=== PATIENT | male | born 1995 | race Caucasian/White ===

== ENCOUNTER 2017-01-13 19:30 | Emergency (ER) | payer OTHER ==
--- NOTE | 2017-01-13 19:45 | PDOC ---
History of Present Illness - General History Source: Patient Exam Limitations: No Limitations - History of Present Illness Initial Comments: 01/13/17 20:16 The patient is a 21 year old male with a significant past medical history of ICD (Brugada syndrome) , chronic sinus problems, who presents to the ED with throat pain for 3 days. Patient states his throat pain is worse when moving his head around. 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 Patient states the throat pain has increased since . He contacted his brother today who is a physician, who told him to come in to the ED. He states he is unable to swallow or eat any food today. He states he had tylenol earlier today with little to no alleviation. He denies ear pain. He denies fever, chills, nausea, vomiting, diarrhea. Last tested for HIV in December, which was negative. PCP: Dr. Solorzano [facility] <Gigi Dorsey - Last Filed: 01/13/17 20:21> <Kacey Nixon - Last Filed: 01/14/17 04:51> - General Chief Complaint: Pain, Acute Stated Complaint: DIFFICULTY SWALLOWING X 3 DAYS Time Seen by Provider: 01/13/17 19:34 Past History <Gigi Dorsey - Last Filed: 01/13/17 20:21> - Surgical History Cardiac Surgery: Yes (ACID) - Immunization History Immunization Up to Date: Yes - Psycho/Social/Smoking Cessation Hx Anxiety: No Suicidal Ideation: No Smoking History: Never smoked Have you smoked in the past 12 months: No Information on smoking cessation initiated: No Hx Alcohol Use: No Drug/Substance Use Hx: No Substance Use Type: None <Kacey Nixon - Last Filed: 01/14/17 04:51> - Past Medical History Allergies/Adverse Reactions: Allergies Allergy/AdvReac Type Severity Reaction Status Date / Time blueberry Allergy Verified 01/13/17 19:32 ANTIHISTAMINES Allergy Uncoded 03/23/16 14:47 Home Medications: Ambulatory Orders Amoxicillin/Potassium Clav [Amox-Clav 875-125 mg Tablet] 1 each PO BID 01/13/17 Review of Systems - Review of Systems Able to Perform ROS?: Yes Comments:: 01/13/17 20:16 GENERAL/CONSTITUTIONAL: No fever or chills. No weakness. HEAD, EYES, EARS, NOSE AND THROAT: + throat pain. No change in vision. No ear pain or discharge. CARDIOVASCULAR: No chest pain or shortness of breath. RESPIRATORY: No cough, wheezing, or hemoptysis. GASTROINTESTINAL: No nausea, vomiting, diarrhea or constipation. GENITOURINARY: No dysuria, frequency, or change in urination. MUSCULOSKELETAL: No joint or muscle swelling or pain. No neck or back pain. SKIN: No rash NEUROLOGIC: No headache, vertigo, loss of consciousness, or change in strength/ sensation. ENDOCRINE: No increased thirst. No abnormal weight change. HEMATOLOGIC/LYMPHATIC: No anemia, easy bleeding, or history of blood clots. ALLERGIC/IMMUNOLOGIC: No hives or skin allergy. <Gigi Dorsey - Last Filed: 01/13/17 20:21> *Physical Exam - Vital Signs Last Vital Signs Temp Pulse Resp BP Pulse Ox 99 F 102 H 16 143/96 100 01/13/17 19:34 01/13/17 19:34 01/13/17 19:34 01/13/17 19:34 01/13/17 19:34 - Physical Exam Comments: 01/13/17 20:16 GENERAL: The patient is awake, alert, and fully oriented, in no acute distress. HEAD: Normal with no signs of trauma. EYES: Pupils equal, round and reactive to light, extraocular movements intact, sclera anicteric, conjunctiva clear with no pallor. ENT: Ears normal, nares patent. Oropharynx is erythematous without exudates or edema. Moist mucous membranes. NECK: Moderately enlarged and mildly tender lymphopathy of anterior cervical lymph nodes. Normal range of motion, supple without JVD, or masses. LUNGS: Breath sounds equal, clear to auscultation bilaterally. No wheeze/ crackles. HEART: Regular rate and rhythm, normal S1 and S2 without murmur or rub. ABDOMEN: Soft/nontender/nondistended. BS wnl. No guarding or rebound. No palpable masses. No hepatosplenomegaly. EXTREMITIES: Normal range of motion, no edema. No clubbing or cyanosis. No cords , erythema, or tenderness. NEUROLOGICAL: Cranial nerves II through XII grossly intact. Normal speech, normal gait. PSYCH: Normal mood, normal affect. SKIN: Warm, Dry, normal turgor, no rashes or lesions noted. <Gigi Dorsey - Last Filed: 01/13/17 20:21> - Vital Signs Last Vital Signs Temp Pulse Resp BP Pulse Ox 99 F 102 H 16 143/96 100 01/13/17 19:34 01/13/17 19:34 01/13/17 19:34 01/13/17 19:34 01/13/17 19:34 <Kacey Nixon - Last Filed: 01/14/17 04:51> ED Treatment Course - Medications Given in the ED: ED Medications Discontinued Medications Generic Name Dose Route Start Last Admin Trade Name Freq PRN Reason Stop Dose Admin Ibuprofen 600 mg 01/13/17 20:03 01/13/17 20:05 Motrin - PO 01/13/17 20:04 600 mg ONCE ONE Administration <Gigi Dorsey - Last Filed: 01/13/17 20:21> Medical Decision Making - Medical Decision Making Documentation has been prepared under my direction and personally reviewed by me in its entirety. I attest that this documented accurately reflects all work, treatment, procedures and medical decision making performed by me. As noted above, this 21-year-old man with Brugada syndrome/ICD presents with a few day history of sore throat/swollen glands in his neck. No fever/chills or other associated symptoms. Exam as noted. The patient has an erythematous oropharynx but no evidence of edema/abscesses present. Uvula small and midline. Also, lymphadenopathy is moderate in size, mildly tender in bilateral. There is no other abnormal lymph node enlargement noted on exam. The patient has had exposure to strep pharyngitis in the last several days. Patient given Motrin 600 mg by mouth for pain relief Quick strep/throat culture sent. Quick strep is negative. Throat culture is pending. Results discussed with the patient. He states that he has had marked relief in pain after Motrin 600 mg by mouth. Patient urged to continue to take nonsteroidal anti- inflammatories alternating with acetaminophen for pain. He will be contacted if throat culture is positive for strep. Meanwhile, he does not require antibiotic therapy. He should drink plenty of fluids and return to the emergency room if symptoms worsen. <Kacey Nixon - Last Filed: 01/14/17 04:51> *DC/Admit/Observation/Transfer - Attestations Scribe Attestion: 01/13/17 20:18 Documentation prepared by Gigi Dorsey, acting as medical records library professor for Kacey Nixon MD. <Gigi Dorsey - Last Filed: 01/13/17 20:21> <Kacey Nixon - Last Filed: 01/14/17 04:51> Diagnosis at time of Disposition: Acute pharyngitis Qualifiers: Pharyngitis/tonsillitis etiology: unspecified etiology Qualified Code(s): J02.9 - Acute pharyngitis, unspecified - Discharge Dispostion Disposition: HOME Condition at time of disposition: Stable - Referrals Referrals: Judson Solorzano MD [Primary Care Provider] - - Patient Instructions Printed Discharge Instructions: DI for Pharyngitis/Tonsillopharyngitis -- Adult Additional Instructions: rest;drink plenty of fluids motrin 600 mg every 6 hrs as needed for throat pain(take with food) return to ER if you have more severe pain,drooling, stiff neck or high fever followup with your general doctor within 4-5 days
[2017-01-13 19:50] VITALS: BP 143/96; PULSE 102; TEMP 99; BMI 24.7
[2017-01-13] MEDS ORDERED: IBUPROFEN 600 MG TABLET (FP) PO ONE ×3 (20:03→20:55)
== END 2017-01-13 21:08 | disposition home or self-care (01) ==
LOC: FER 19:30
DX: J02.9 Acute pharyngitis, unspecified (principal); Q24.8 Other specified congenital malformations of heart
CPT/HCPCS: 87070; 87430; 99281-25

== ENCOUNTER 2017-02-20 03:06 | Emergency (ER) | payer OTHER ==
[2017-02-20 03:34] VITALS: BP 113/73; PULSE 63; TEMP 98.2; BMI 23.6
[2017-02-20] MEDS ORDERED: PENICILLIN V POTASSIUM 500 MG TABLET PO ONE (03:52)
[2017-02-20] MEDS ORDERED: OXYCODONE/APAP 5/325MG COMBO TABLET PO ONE (03:52)
--- NOTE | 2017-02-20 03:54 | PDOC ---
History of Present Illness - General History Source: Patient, Old Records Exam Limitations: No Limitations - History of Present Illness Initial Comments: 02/20/17 03:58 The patient is a 21 year old male with a significant past medical history of ICD (Brugada syndrome) , chronic sinus problems, who presents to the emergency department with tooth pain for 3 hours. The patient states that his pain was untriggered and is worse when lying down. The patient states that he wants to see a dentist but is unable to until 9 am and was unable to tolerate pain in the meantime. <Adi Hendricks - Last Filed: 02/20/17 03:58> - General History Source: Patient <BrennankeithJimy - Last Filed: 02/20/17 04:15> - General Chief Complaint: Toothache Stated Complaint: TOOTHPAIN, JAW PAIN Time Seen by Provider: 02/20/17 03:52 Past History <Adi Hendricks - Last Filed: 02/20/17 03:58> - Past Medical History Cardiac Disorders: Yes (brugadas syndrome) - Surgical History Cardiac Surgery: Yes (ACID) - Immunization History Immunization Up to Date: Yes - Psycho/Social/Smoking Cessation Hx Anxiety: No Suicidal Ideation: No Smoking History: Never smoked Have you smoked in the past 12 months: No Hx Alcohol Use: No Drug/Substance Use Hx: No Substance Use Type: None <Jimy Mar - Last Filed: 02/20/17 04:15> - Past Medical History Allergies/Adverse Reactions: Allergies Allergy/AdvReac Type Severity Reaction Status Date / Time blueberry Allergy Verified 02/20/17 03:32 ANTIHISTAMINES Allergy Uncoded 02/20/17 03:32 Home Medications: Ambulatory Orders Oxycodone HCl/Acetaminophen [Percocet 5-325 mg Tablet] 1 - 2 tab PO Q6H #20 tablet MDD 4 02/20/17 Penicillin V Potassium [Pen Vee K -] 500 mg PO TID #30 tablet 02/20/17 Review of Systems - Review of Systems Able to Perform ROS?: Yes Comments:: 02/20/17 03:58 CONSTITUTIONAL: Absent: fever, no chills, no fatigue EYES: Absent: visual changes Mouth/ENT: Present: Tooth pain Absent: ear pain, no sore throat CARDIOVASCULAR: Absent: chest pain, no palpitations RESPIRATORY: Absent: cough, no SOB GI: Absent: abdominal pain, no nausea, no vomiting, no constipation, no diarrhea GENITOURINARY: Absent: dysuria, no frequency, no hematuria MUSCULOSKELETAL: Absent: back pain, no arthralgia, no myalgia SKIN: Absent: rash <Adi Hendricks - Last Filed: 02/20/17 03:58> *Physical Exam - Vital Signs Last Vital Signs Temp Pulse Resp BP Pulse Ox 98.2 F 63 18 113/73 100 02/20/17 03:32 02/20/17 03:32 02/20/17 03:32 02/20/17 03:32 02/20/17 03:32 - Physical Exam Comments: 02/20/17 03:58 GENERAL: Well-appearing, well-nourished. No apparent distress. HEENT: (+) Broken number 29 tooth. Normocephalic, atraumatic. PERRL, EOM intact. CARDIOVASCULAR: Normal S1, S2. Regular rate and rhythm. PULMONARY: Clear to auscultation bilaterally. ABDOMEN: Soft, non-distended, non-tender. EXTREMITIES: Normal ROM in all four extremities. No gross deformities. SKIN: Warm, dry. No rash NEUROLOGICAL: No focal neurological deficits. <Adi Hendricks - Last Filed: 02/20/17 03:58> - Vital Signs Last Vital Signs Temp Pulse Resp BP Pulse Ox 98.2 F 63 18 113/73 100 02/20/17 03:32 02/20/17 03:32 02/20/17 03:32 02/20/17 03:32 02/20/17 03:32 <Jimy Mar - Last Filed: 02/20/17 04:15> *DC/Admit/Observation/Transfer - Attestations Scribe Attestion: 02/20/17 03:59 Documentation prepared by Adi Hendricks, acting as medical records technician for Jimy Mar DO. <Adi Hendricks - Last Filed: 02/20/17 03:58> - Discharge Dispostion Admit: No <Jimy Mar - Last Filed: 02/20/17 04:15> Diagnosis at time of Disposition: Toothache, Fracture of tooth - Discharge Dispostion Disposition: HOME Condition at time of disposition: Stable - Prescriptions Prescriptions: Penicillin V Potassium [Pen Vee K -] 500 mg PO TID #30 tablet Oxycodone HCl/Acetaminophen [Percocet 5-325 mg Tablet] 1 - 2 tab PO Q6H #20 tablet MDD 4 - Referrals Referrals: Judson Solorzano MD [Primary Care Provider] - - Patient Instructions Printed Discharge Instructions: DI for Dental Pain
[2017-02-20] MEDS ORDERED: OXYCODONE/APAP 5/325MG COMBO TABLET ONE (03:55)
== END 2017-02-20 04:22 | disposition home or self-care (01) ==
LOC: JER 03:06
DX: K08.89 Other specified disorders of teeth and supporting structures (principal)
CPT/HCPCS: 99282-25

== ENCOUNTER 2017-05-15 12:32 | Emergency (ER) | payer SELFPAY ==
[2017-05-15 12:46] VITALS: BP 128/73; PULSE 77; TEMP 98.3; BMI 23.6
--- NOTE | 2017-05-15 13:21 | PDOC ---
History of Present Illness - General Chief Complaint: Injury Stated Complaint: RT FOOT INJURY History Source: Patient Exam Limitations: No Limitations - History of Present Illness Initial Comments: 05/15/17 13:17 21 yo male no pmhx here with c/o right foot heel skin avulsion. was walking, tripped. rolled foot. got small skin avulsion posterior heel. no active bleeding. mild painl. ambulating without difficulty. no brusing or swelling. no hip or knee pain .. no mod factors. also would like a hiv screen. Past History - Past Medical History Allergies/Adverse Reactions: Allergies Allergy/AdvReac Type Severity Reaction Status Date / Time blueberry Allergy Verified 05/15/17 12:34 ANTIHISTAMINES Allergy Uncoded 05/15/17 12:34 Home Medications: Ambulatory Orders NK [No Known Home Medication] 05/15/17 Cardiac Disorders: Yes (brugadas syndrome) - Surgical History Cardiac Surgery: Yes (ACID) - Immunization History Immunization Up to Date: Yes - Suicide/Smoking/Psychosocial Hx Smoking History: Never smoked Have you smoked in the past 12 months: No Information on smoking cessation initiated: No Hx Alcohol Use: No Drug/Substance Use Hx: No Substance Use Type: None Review of Systems - Review of Systems Constitutional: No: Chills, Diaphoresis HEENTM: No: Eye Pain Respiratory: No: Orthopnea Cardiac (ROS): No: Chest Pain, Edema ABD/GI: No: Abdominal Distended : No: Burning Musculoskeletal: Yes: Other. No: Back Pain, Gout, Joint Pain Integumentary: Yes: Other (skin avulsion). No: Bruising All Other Systems: Reviewed and Negative *Physical Exam - Vital Signs Last Vital Signs Temp Pulse Resp BP Pulse Ox 98.3 F 77 20 128/73 99 05/15/17 12:33 05/15/17 12:33 05/15/17 12:33 05/15/17 12:33 05/15/17 12:33 - Physical Exam General Appearance: Yes: Appropriately Dressed Neck: positive: Trachea midline Respiratory/Chest: positive: Lungs Clear, Normal Breath Sounds Cardiovascular: positive: Regular Rhythm, Regular Rate, S1, S2 Musculoskeletal: positive: Normal Inspection, Other (right ankle no med/. lat mall tenderness. from no eccymosis or swelling. ) Integumentary: positive: Normal Color, Dry, Warm, Other (small 3 mm skin avulsion, superifical post heel right foot. no active bleeding. no erythema.) Neurologic: positive: Fully Oriented, Alert, Normal Mood/Affect Medical Decision Making - Medical Decision Making 05/15/17 13:19 plan skin tear debrided. dressed with bacitracin, and guaze. hiv screen ordered. dc home. 05/15/17 13:21 pt changed his mind he would not like the HIV screen anymore. dc home. *DC/Admit/Observation/Transfer Diagnosis at time of Disposition: Avulsion of skin of foot - Discharge Dispostion Disposition: HOME Condition at time of disposition: Improved Admit: No - Referrals Referrals: Rafael Olmos MD [Staff Physician] - - Patient Instructions Additional Instructions: apply bacitracin ointment twice daily to foot wound x one week. return for any redness, swelling or any concerns. 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 see dr Gonzales information and call to schedule.
== END 2017-05-15 13:24 | disposition home or self-care (01) ==
LOC: FER 12:32
DX: S91.301A Unspecified open wound, right foot, initial encounter (principal); I51.9 Heart disease, unspecified; W22.01XA Walked into wall, initial encounter; Y93.89 Activity, other specified; Y92.9 Unspecified place or not applicable
CPT/HCPCS: 99282-25

== ENCOUNTER 2019-02-08 20:32 | Emergency (ER) | payer OTHER ==
[2019-02-08 20:59] VITALS: BP 130/75; PULSE 93; TEMP 98.9; BMI 25.0
[2019-02-08] MEDS ORDERED: PENICILLIN G BENZATHINE 1,200,000 UNIT/2 ML PFS IM ONE (21:14)
[2019-02-08] MEDS ORDERED: PENICILLIN G BENZATHINE 2,400,000 UNIT/4 ML PFS ONE (21:14)
--- NOTE | 2019-02-08 21:23 | PDOC ---
History of Present Illness - General Chief Complaint: Sore Throat Stated Complaint: SORE/THROAT Time Seen by Provider: 02/08/19 21:14 History Source: Patient Exam Limitations: No Limitations Past History - Travel Traveled outside of the country in the last 30 days: No Close contact w/someone who was outside of country & ill: No - Past Medical History Allergies/Adverse Reactions: Allergies Allergy/AdvReac Type Severity Reaction Status Date / Time blueberry Allergy Verified 12/02/17 09:36 No Known Drug Allergies Allergy Verified 02/08/19 20:52 Home Medications: Ambulatory Orders NK [No Known Home Medication] 02/08/19 Cardiac Disorders: Yes (brugadas syndrome) COPD: No - Surgical History Cardiac Surgery: Yes (ACID) - Immunization History Immunization Up to Date: Yes - Suicide/Smoking/Psychosocial Hx Smoking History: Never smoked Have you smoked in the past 12 months: No Number of Cigarettes Smoked Daily: 0 If you are a former smoker, when did you quit?: 2014 Hx Alcohol Use: No Drug/Substance Use Hx: No Substance Use Type: Alcohol, Marijuana Review of Systems - Review of Systems Able to Perform ROS?: Yes Comments:: 02/08/19 21:19 CONSTITUTIONAL: Absent: fever, chills, diaphoresis, generalized weakness, malaise, loss of appetite HEENT: Present: sore throat Absent: rhinorrhea, nasal congestion, throat swelling, difficulty swallowing, mouth swelling, ear pain, eye pain, visual Changes CARDIOVASCULAR: Absent: chest pain, loss of consciousness, palpitations, irregular heart rate, peripheral edema RESPIRATORY: Absent: cough, shortness of breath, dyspnea with exertion, orthopnea, wheezing, stridor, hemoptysis GASTROINTESTINAL: Absent: abdominal pain, abdominal distension, nausea, vomiting, diarrhea, constipation, melena, hematochezia GENITOURINARY: Absent: dysuria, frequency, urgency, hesitancy, hematuria, flank pain, genital pain MUSCULOSKELETAL: Absent: myalgia, arthralgia, joint swelling SKIN: Absent: rash, itching, pallor HEMATOLOGIC/IMMUNOLOGIC: Absent: easy bleeding, easy bruising, lymphadenopathy, frequent infections ENDOCRINE: Absent: unexplained weight gain, unexplained weight loss, heat intolerance, cold intolerance NEUROLOGIC: Absent: headache, focal weakness or paresthesias, dizziness, unsteady gait, seizure, mental status changes, bladder or bowel incontinence PSYCHIATRIC: Absent: anxiety, depression, suicidal or homicidal ideation, hallucinations. Is the patient limited Hebrew proficient: No *Physical Exam - Vital Signs Last Vital Signs Temp Pulse Resp BP Pulse Ox 98.9 F 93 H 20 130/75 98 02/08/19 20:53 02/08/19 20:53 02/08/19 20:53 02/08/19 20:53 02/08/19 20:53 - Physical Exam Comments: 02/08/19 21:20 GENERAL: The patient is awake, alert, and fully oriented, in no acute distress. HEAD: Normal with no signs of trauma. EYES: Pupils equal, round and reactive to light, extraocular movements intact, sclera anicteric, conjunctiva clear. HEENT: No nasal congestion or rhinorrhea. No sinus Tenderness. Mucous membranes are moist. (+) tonsillar erythema and exudate. No edema. Uvula is midline. No TM bulging, dullness or erythema. EXTREMITIES: Normal range of motion, no edema. NEUROLOGICAL: Normal speech, normal gait. PSYCH: Normal mood, normal affect. SKIN: Warm, Dry, normal turgor, no rashes or lesions noted. Medical Decision Making - Medical Decision Making 02/08/19 21:20 the patient is a 23-year-old male with past medical history of Brugada syndrome , who presents to the ER today with 3 days of sore throat. He states that he feels like it is hard to swallow on one side. Denies cough, fever and chills. He has noticed some white spots in the back of his throat. A/P: Strep pharyngitis On exam the throat is erythematous and with exudate. No edema uvula is midline. No fever at this time, no cough. Centor criteria is a 3, will treat prophylactically for strep throat at this time Bicillin shot given Discharge home I discussed the physical exam findings, ancillary test results and final diagnoses with the patient. I answered all of the patient's questions. The patient was satisfied with the care received and felt comfortable with the discharge plan and treatment plan. The Patient agrees to follow up with the primary care physician/specialist within 24-72 hours. Return precautions were given. *DC/Admit/Observation/Transfer Diagnosis at time of Disposition: Acute pharyngitis Qualifiers: Pharyngitis/tonsillitis etiology: streptococcus Qualified Code(s): J02.0 - Streptococcal pharyngitis - Discharge Dispostion Disposition: HOME Condition at time of disposition: Stable Decision to Admit order: No - Referrals Referrals: Jesus Blevins MD [Staff Physician] - - Patient Instructions Printed Discharge Instructions: DI for Strep Throat Additional Instructions: You have strep throat. This is a bacterial infection. You were treated in the ER with Bicillin. You do not need any further antibiotics at this time Warm water gargles and cough drops and just may also help her symptoms. Please throw way your toothbrush 3 days into treatment to prevent reinfection. Please follow up with your primary care doctor next week. Return to emergency department if you have worsening pain, difficulty swallowing , changes in your voice, lightheadedness, dizziness, or any changes in your symptoms. - Post Discharge Activity Forms/Work/School Notes: Back to Work
== END 2019-02-08 21:39 | disposition home or self-care (01) ==
LOC: JERFT 20:32
PROC: 3E0233Z Introduction of Anti-inflammatory into Muscle, Percutaneous Approach (ICD-10-PCS; principal; 2019-02-08)
DX: J02.0 Streptococcal pharyngitis (principal); I49.8 Other specified cardiac arrhythmias; Z95.810 Presence of automatic (implantable) cardiac defibrillator
CPT/HCPCS: 96372; 99281-25

== ENCOUNTER 2019-03-01 21:50 | Emergency (ER) | payer OTHER ==
[2019-03-01 22:00] VITALS: BP 127/79; PULSE 94; TEMP 98.3; BMI 24.3
--- NOTE | 2019-03-01 22:27 | PDOC ---
History of Present Illness - General Chief Complaint: Weakness Stated Complaint: LIGHTHEADED Time Seen by Provider: 03/01/19 22:25 History Source: Patient Exam Limitations: No Limitations - History of Present Illness Initial Comments: Kevin Brooks is a 23 yo m w a hx of brugada s/p AICD placement in 2011 who presents to the [facility] via private auto because he experienced some weakness and lightheadedness earlier today. The patient states he woke up this morning feeling completely normal but then around 1 pm he began feeling some dizziness described as a lightheaded sensation. The lightheadedness was also associated with some minor weakness. The patient drank some coca cola which made him feel better temporarily but then the lightheadedness and weakness came back which prompted Kevin to come to the ER and get evaluated. Patient endorses a slight rash on his lower legs from his cat flees. He denies experiencing any chest pain at any point today. Denies experiencing any SOB, difficulty breathing, nausea, vomiting, diaphoresis, dysuria, frequency , urgency, back pain, headache, blurry vision, numbness, tingling, or chills. 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 Past History - Past Medical History Allergies/Adverse Reactions: Allergies Allergy/AdvReac Type Severity Reaction Status Date / Time blueberry Allergy Verified 12/02/17 09:36 No Known Drug Allergies Allergy Verified 02/08/19 20:52 Home Medications: Ambulatory Orders NK [No Known Home Medication] 02/08/19 Cardiac Disorders: Yes (brugadas syndrome) COPD: No - Surgical History Cardiac Surgery: Yes (ACID) - Immunization History Immunization Up to Date: Yes - Suicide/Smoking/Psychosocial Hx Smoking History: Never smoked Have you smoked in the past 12 months: No Number of Cigarettes Smoked Daily: 0 If you are a former smoker, when did you quit?: 2014 Information on smoking cessation initiated: No Hx Alcohol Use: No Drug/Substance Use Hx: No Substance Use Type: Alcohol, Marijuana Review of Systems - Review of Systems Able to Perform ROS?: Yes Comments:: CONSTITUTIONAL: Present: Generalized weakness Absent: fever, no chills, no fatigue EYES: Absent: visual changes ENT: Absent: ear pain, no sore throat CARDIOVASCULAR: Present: Lightheadedness Absent: chest pain, no palpitations RESPIRATORY: Absent: cough, no SOB GI: Absent: abdominal pain, no nausea, no vomiting, no constipation, no diarrhea GENITOURINARY: Absent: dysuria, no frequency, no hematuria MUSKULOSKELETAL: Absent: back pain, no arthralgia, no myalgia SKIN: Absent: rash NEURO: Present: Dizziness Absent: headache *Physical Exam - Vital Signs Last Vital Signs Temp Pulse Resp BP Pulse Ox 98.3 F 94 H 20 127/79 99 03/01/19 21:57 03/01/19 21:57 03/01/19 21:57 03/01/19 21:57 03/01/19 21:57 - Physical Exam Comments: GENERAL: Well developed, well nourished. Awake and alert. No acute distress. HEENT: Normocephalic, atraumatic. PERRLA, EOMI. No conjunctival pallor. Sclera are non- icteric. Moist mucous membranes. Oropharynx is clear. NECK: Supple. Full ROM. No JVD. No lymphadenopathy. CARDIOVASCULAR: Regular rate and rhythm. No murmurs, rubs, or gallops. Distal pulses are 2+ and symmetric. PULMONARY: No evidence of respiratory distress. Lungs clear to auscultation bilaterally. No wheezing, rales or rhonchi. ABDOMINAL: Soft. Non-tender. Non-distended. No rebound or guarding. No organomegaly. Normoactive bowel sounds. MUSCULOSKELETAL Normal range of motion at all joints. No bony deformities or tenderness. No CVA tenderness. EXTREMITIES: No cyanosis. No clubbing. No edema. No calf tenderness. SKIN: Warm and dry. Normal capillary refill. No rashes. No jaundice. NEUROLOGICAL: Alert, awake, appropriate. Cranial nerves 2-12 intact. No deficits to light touch in face, upper extremities and lower extremities. No motor deficits in the in face, upper extremities and lower extremities. Normal speech. Gait is normal without ataxia. PSYCHIATRIC: Cooperative. Good eye contact. Appropriate mood and affect. ED Treatment Course - LABORATORY CBC & Chemistry Diagram: 03/01/19 22:43 03/01/19 23:27 Medical Decision Making - Medical Decision Making Kevin Brooks is a 23 yo m w a hx of brugada s/p AICD placement in 2011 who presents to the [facility] via private auto because he experienced some weakness and lightheadedness earlier today. The patient states he woke up this morning feeling completely normal but then around 1 pm he began feeling some dizziness described as a lightheaded sensation. The lightheadedness was also associated with some minor weakness. The patient drank some coca cola which made him feel better temporarily but then the lightheadedness and weakness came back which prompted Kevin to come to the ER and get evaluated. Patient endorses a slight rash on his lower legs from his cat flees. Vital Signs Temp Pulse Resp BP Pulse Ox 98.3 F 94 H 20 127/79 99 03/01/19 21:57 03/01/19 21:57 03/01/19 21:57 03/01/19 21:57 03/01/19 21:57 DDx IBNLT: Brugada - arrhythmia, electrolyte/metabolic disturbance, ACS/ME, PNA , pneumothorax, hypoglycemia, dehydration Plan: cbc, cmp, trop x2, EKG, CXR, Iv hydration, re-assess. EKG: There is a pronounced elevation of the J point in leads V1 and V2, a coved- type ST segment, and an inverted T wave in V1 and V2. Cbc: Unremarkable Cmp: Mildly hypocalcemic - Repleting with oral calcium and vitamin D CXR: Unremarkable Re-assessment: Patient feels better after IV hydration and calcium replacement and requests to be discharged home. Disposition: Home with PCP and cardio Fu *DC/Admit/Observation/Transfer Diagnosis at time of Disposition: Lightheadedness - Discharge Dispostion Disposition: HOME Condition at time of disposition: Improved Decision to Admit order: No - Referrals Referrals: Judson Solorzano MD [Primary Care Provider] - - Patient Instructions Printed Discharge Instructions: DI for Syncope in Adults (Fainting) Additional Instructions: You came into the ER with weakness and lightheadedness. We looked at your blood and found you were mildly hypocalcemic. Please make sure to go buy extra calcium supplements at your local pharmacy. Please make sure to follow up with both a elevator worker and your primary care doctor in the next 3 to 5 days. Come back to the ER immediately if your pain, weakness, lightheadedness, or any other symptoms arise. Come back if you develop any new or worsening concerns. Thank you for coming to the [facility]' ER. We hope you feel better soon! Print Language: INDONESIAN - Post Discharge Activity
[2019-03-01] MEDS ORDERED: SODIUM CHLORIDE 1,000 ML IV STA (22:32)
[2019-03-01 22:57] LABS: BASO % 0.5 % (0-2.0); HEMATOCRIT 44.6 % (35.4-49); HEMOGLOBIN 15.4 GM/dL (11.7-16.9); LYMPH % 34.9 % (8-40); MCH 28.4 pg (25.7-33.7); MCHC 34.6 g/dl (32.0-35.9); MEAN PLT VOLUME 8.9 fl (7.5-11.1); MONO % 9.5 % (3.8-10.2); NEUT % 53.1 % (42.8-82.8); PLATELET COUNT 166 K/MM3 (134-434); RBC 5.43 M/mm3 (4.00-5.60); RDW 13.4 % (11.9-15.9)
[2019-03-01 23:20] LABS: INR 1.11 (0.83-1.09); PROTHROMBIN TIME (PATIENT) 13.1 SEC (9.7-13.0)
[2019-03-02 00:25] LABS: ALBUMIN 3.6 g/dl (3.4-5.0); ALK PHOS 61 U/L (45-117); ANION GAP 7 MMOL/L (8-16); BILIRUBIN,TOTAL 0.4 mg/dL (0.2-1); BLOOD UREA NITROGEN 16.5 mg/dL (7-18); CALCIUM 7.8 mg/dL (8.5-10.1); CHLORIDE 111 mmol/L (98-107); CO2 25 mmol/L (21-32); CREATININE 0.9 mg/dL (0.55-1.3); GLUCOSE,RANDOM 86 mg/dL (74-106); POTASSIUM 3.7 mmol/L (3.5-5.1); SGOT/AST 19 U/L (15-37); SGPT/ALT 46 U/L (13-61); SODIUM 144 mmol/L (136-145); TOT PROT 6.4 g/dl (6.4-8.2)
[2019-03-02] MEDS ORDERED: CALCIUM 500MG/VIT-D 200 UNITS COMBO TABLET (FP) PO ONE (00:45)
== END 2019-03-02 01:16 | disposition home or self-care (01) ==
LOC: JERFT 21:50 → JER 21:50
PROC: 3E0337Z Introduction of Electrolytic and Water Balance Substance into Peripheral Vein, Percutaneous Approach (ICD-10-PCS; principal; 2019-03-01)
DX: R42 Dizziness and giddiness (principal); I49.8 Other specified cardiac arrhythmias; Z95.810 Presence of automatic (implantable) cardiac defibrillator
CPT/HCPCS: 36415; 71046-TC-FY; 80053; 84484; 85025; 85610; 96360; 99283-25; J7030

== ENCOUNTER 2019-03-20 20:10 | Emergency (ER) | payer OTHER ==
--- NOTE | 2019-03-20 20:19 | PDOC ---
Rapid Medical Evaluation Medical Evaluation: Allergies Allergy/AdvReac Type Severity Reaction Status Date / Time blueberry Allergy Verified 12/02/17 09:36 No Known Drug Allergies Allergy Verified 02/08/19 20:52 I have performed a brief in-person evaluation of this patient. The patient presents with a chief complaint of: Hx of brugada syndrome s/p ICD; Bit lower inner lip / and swelling has not yet subsided; is not on blood thinners Pertinent physical exam findings: +swelling of lower inner lip, not tender to touch I have ordered the following: Nothing The patient will proceed to the ED for further evaluation. 03/20/19 20:16
[2019-03-20 20:20] VITALS: BP 130/68; PULSE 68; TEMP 98.5; BMI 25.2
--- NOTE | 2019-03-20 21:37 | PDOC ---
History of Present Illness - General Chief Complaint: Oral Ulcers Stated Complaint: BUMP ON LIP Time Seen by Provider: 03/20/19 20:16 History Source: Patient - History of Present Illness Initial Comments: 03/20/19 21:31 Chief complaint: Lip swelling Patient 23-year-old male with Brugada syndrome, AICD, on any kind of anticoagulation or antiplatelet therapy who states he bit his lip a few weeks ago, it has remained swollen. No fever and otherwise well GENERAL/CONSTITUTIONAL: No fever, weakness. dizziness HEAD, EYES, EARS, NOSE AND THROAT: No change in vision. No ear pain or discharge. No sore throat. CARDIOVASCULAR: No chest pain RESPIRATORY: No shortness of breath or cough GASTROINTESTINAL: No pain, nausea, vomiting, diarrhea or constipation GENITOURINARY: No dysuria MUSCULOSKELETAL: No neck or back pain SKIN: No rash, + lip swelling NEUROLOGIC: No headache, vertigo, loss of consciousness, or loss of sensation. GENERAL: The patient is awake, alert, and fully oriented, in no acute distress. HEAD: Normal with no signs of trauma. EYES: Pupils equal, round and reactive to light, sclera anicteric, conjunctiva clear. ENT: pharynx: no erythema, no exudate, uvula midline, left lower lip with 1-1/2 cm raised fluid filled appearing lesion, no erythema or cellulitis, fluctuant NECK: supple CHEST: clear, nontender, rr, AICD scar BACK: no tenderness or signs of injury EXTREMITIES: Normal range of motion, no edema. NEUROLOGICAL: Normal speech, normal gait. SKIN: Warm, Dry Past History - Past Medical History Allergies/Adverse Reactions: Allergies Allergy/AdvReac Type Severity Reaction Status Date / Time blueberry Allergy Verified 12/02/17 09:36 No Known Drug Allergies Allergy Verified 02/08/19 20:52 Home Medications: Ambulatory Orders Amox-Tr/K Cl [Augmentin - 875Mg Tablet] 1 tab PO BID #14 tablet 03/20/19 Cardiac Disorders: Yes (brugadas syndrome) COPD: No - Surgical History Cardiac Surgery: Yes (ACID) - Immunization History Immunization Up to Date: Yes - Suicide/Smoking/Psychosocial Hx Smoking History: Never smoked Have you smoked in the past 12 months: No Number of Cigarettes Smoked Daily: 0 If you are a former smoker, when did you quit?: 2014 Hx Alcohol Use: No Drug/Substance Use Hx: No Substance Use Type: Alcohol, Marijuana *Physical Exam - Vital Signs Last Vital Signs Temp Pulse Resp BP Pulse Ox 98.5 F 68 19 130/68 100 03/20/19 20:17 03/20/19 20:17 03/20/19 20:17 03/20/19 20:17 03/20/19 20:17 Medical Decision Making - Medical Decision Making 03/20/19 21:34 Patient who bit his fluids, has trauma related fluid-filled swelling to the lower lip, no cellulitis or obvious abscess, we will do a needle incision to express it. Area cleaned, 18-gauge needle used to open lesion, thick gómez liquid expressed along with a hematoma, no pus. Had patient hold pressure, rinse mouth with water and hydrogen peroxide. Given area will put on Augmentin and recommended patient follow-up with oral surgeon to see if he needs another procedure, that this resolves and does not return. *DC/Admit/Observation/Transfer Diagnosis at time of Disposition: Lip swelling - Discharge Dispostion Disposition: HOME Condition at time of disposition: Stable Decision to Admit order: No - Prescriptions Prescriptions: Amox-Tr/K Cl [Augmentin - 875Mg Tablet] 1 tab PO BID #14 tablet - Referrals Referrals: Judson Solorzano MD [Primary Care Provider] - - Patient Instructions Additional Instructions: apply pressure to area. Take Augmentin one tablet every 12 hours for 7 days rinse mouth with a combination of water and hydrogen peroxide 2-3 times daily If not resolved by Saturday, make an appointment with an oral surgeon for further evaluation to ensure complete resolution and if you need another procedure to do that Return to the ER if fever, worsening swelling that spreads, discharge, difficulty swallowing or swelling under your tongue or any other concerns - Post Discharge Activity
[2019-03-20] MEDS ORDERED: AMOX TR/POT CLAV 875MG/125MG TABLETS (FP) PO ONE (21:38)
[2019-03-20] MEDS ORDERED: AMOX TR/POT CLAV 875MG/125MG TABLETS (FP) ONE (21:41)
== END 2019-03-20 21:45 | disposition home or self-care (01) ==
LOC: JERFT 20:10
PROC: 0C913ZZ Drainage of Lower Lip, Percutaneous Approach (ICD-10-PCS; principal; 2019-03-20)
DX: K13.0 Diseases of lips (principal)
CPT/HCPCS: 10160; 99281-25

== ENCOUNTER 2019-03-26 17:24 | Emergency (ER) | payer OTHER | END 2019-03-26 18:34 | disposition home or self-care (01) | LOC: JERFT 17:24 ==

== ENCOUNTER 2019-05-10 20:53 | Emergency (ER) | payer OTHER ==
[2019-05-10 21:12] VITALS: BP 126/76; PULSE 101; TEMP 98.9; BMI 24.3
--- NOTE | 2019-05-10 22:34 | PDOC ---
Documentation entered by Jeffy Mix SCRIBE, acting as scribe for Tae Michael MD. Tae Michael MD: This documentation has been prepared by the Maria Del Rosario abdullahi Nirvannie, SCRIBE, under my direction and personally reviewed by me in its entirety. I confirm that the documentation accurately reflects all work, treatment, procedures, and medical decision making performed by me. History of Present Illness - General Chief Complaint: Cold Symptoms Stated Complaint: SINUS INFECTION Time Seen by Provider: 05/10/19 22:19 History Source: Patient Exam Limitations: No Limitations - History of Present Illness Initial Comments: 05/10/19 22:37 CC: Nasal congestion, facial pain. HPI: The patient is a 23 year old male, with a significant past medical history of Brugada Syndrome and frequent sinus infections, who presents to the emergency department with, 2 days of nasal congestion, left-sided facial pain, and subjective fevers. Patient notes seeing greenish/yellow discharge from his left nostril. He endorses using hot towels and neti pots, without relief prompting his arrival to the ED. He denies any recent chest pain or shortness of breath. He denies any recent dysuria, frequency, urgency or hematuria. Allergies: NKDA Past History - Past Medical History Allergies/Adverse Reactions: Allergies Allergy/AdvReac Type Severity Reaction Status Date / Time blueberry Allergy Verified 05/10/19 21:11 No Known Drug Allergies Allergy Verified 05/10/19 21:11 Home Medications: Ambulatory Orders Amox-Tr/K Cl [Augmentin - 875Mg Tablet] 1 tab PO BID #14 tablet 03/20/19 Diazepam [Valium] 10 mg PO Q8H #2 tablet MDD 2 03/26/19 Naproxen [Naprosyn -] 500 mg PO BID #30 tablet 03/26/19 Amoxicillin/Potassium Clav [Augmentin 875-125 Tablet] 1 each PO BID #14 tablet 05/10/19 Cardiac Disorders: Yes (brugadas syndrome) COPD: No - Surgical History Cardiac Surgery: Yes (ACID) - Immunization History Immunization Up to Date: Yes - Suicide/Smoking/Psychosocial Hx Smoking History: Never smoked Have you smoked in the past 12 months: No Number of Cigarettes Smoked Daily: 0 If you are a former smoker, when did you quit?: 2014 Hx Alcohol Use: Yes (socially) Drug/Substance Use Hx: No Substance Use Type: Alcohol, Marijuana Review of Systems - Review of Systems Able to Perform ROS?: Yes Comments:: 05/10/19 22:37 A complete review of 10 out of 10 review of systems is taken and is negative apart from what is previously mentioned below and in the HPI. *Physical Exam - Vital Signs Last Vital Signs Temp Pulse Resp BP Pulse Ox 98.9 F 101 H 18 126/76 100 05/10/19 21:11 05/10/19 21:11 05/10/19 21:11 05/10/19 21:11 05/10/19 21:11 - Physical Exam Comments: 05/10/19 22:37 Exam: Vitals: Triage Vital signs reviewed General Appearance: no acute distress, well nourished well developed, Head: +Tenderness over the left sinus. Atraumatic, normocephalic Eyes: Pupils equal reactive round, extraocular movement intact Ears: TM's normal bilaterally; Nose: Nares patent bilaterally;+ nasal congestion Throat: Posterior oropharynx without erythema, mucous membranes moist, Neck: Supple;No Nuchal rigidity Chest Wall: Nontender Cardiac: Regular rate and rhythm, no murmurs, no rubs, no gallops, Lungs: Clear to auscultation bilateral, good air movement bilaterally, Abdomen: Soft, nondistended, normal bowel sounds, nontender to palpation Rectal: Exam deferred Extremities: Full range of motion to all extremities, no cyanosis, clubbing, or edema Skin: Warm and dry, no rashes or lesions, no petechiae Neuro: AOX3; Cranial Nerves 2-12 grossly intact, Strength intact to all extremities, Sensation intact to all extremities Psych: normal mood, normal affect Medical Decision Making - Medical Decision Making 05/10/19 22:29 Sinus infection with green discharge. Will treat with Augmentin *DC/Admit/Observation/Transfer Diagnosis at time of Disposition: Acute bacterial sinusitis - Discharge Dispostion Disposition: HOME Decision to Admit order: No - Prescriptions Prescriptions: Amoxicillin/Potassium Clav [Augmentin 875-125 Tablet] 1 each PO BID #14 tablet - Referrals Referrals: Patric Pedersen MD [Staff Physician] - - Patient Instructions Printed Discharge Instructions: Sinusitis Additional Instructions: Affrin nasal spray twice a day. Then Nettipot 20 min after. Augmentin as prescribed. Follow up with your doctor or ENT this week. Return to ED for any severe worsening symptoms or for any concerns - Post Discharge Activity
== END 2019-05-10 22:35 | disposition home or self-care (01) ==
LOC: JERFT 20:53
DX: J01.90 Acute sinusitis, unspecified (principal); B96.89 Other specified bacterial agents as the cause of diseases classified elsewhere; I49.8 Other specified cardiac arrhythmias; Z95.810 Presence of automatic (implantable) cardiac defibrillator
CPT/HCPCS: 99281-25

== ENCOUNTER 2019-07-19 04:49 | Emergency (ER) | payer OTHER ==
--- NOTE | 2019-07-19 05:00 | PDOC ---
History of Present Illness - General Stated Complaint: ABD PAIN Time Seen by Provider: 07/19/19 05:00 History Source: Patient Exam Limitations: No Limitations - History of Present Illness Initial Comments: 23 year old male with PMH Brugada syndrome s/p AICD placement (never been shocked per pt) presented to ED for umbilical abdominal pain since 319 associated with one episode of loose watery brown diarrhea. Pt reported the pain was intermittent, sharp, making him fall to the ground in the position, no alleviating or aggravating factors. He reported the pain stopped once EMS arrived, and he has not had any more episodes of diarrhea. He reported feeling in his usual state of health now, but was concerned because of his Brugada and felt he needed medical attention. ROS General: denied fever, chills, generalized weakness. HEENT: denied sore throat, rhinorrhea, ear pain. Cardiovascular: denied chest pain, palpitations, syncope, diaphoresis. Respiratory: denied shortness of breath, cough, sputum production, hemoptysis. Gastrointestinal: admitted to abdominal pain, diarrhea. denied nausea, vomiting , constipation, blood in stool. Genitourinary: denied dysuria, increased urinary frequency, hematuria, urinary incontinence, flank pain. Back: denied back pain. Musculoskeletal: denied joint pain, muscle pain, joint swelling. Neurological: denied headache, dizziness, numbness, tingling, weakness. Integumentary: denied rash, laceration, abrasion. Hematologic/Lymphatic: denied bruising or bleeding. PE Constitutional: Well-nourished, Well-developed, appearing stated age. ambulated around room without difficulty or pain. HEENT: head is normocephalic, atraumatic. EOMI. PERRLA. Neck: supple. Full ROM. Cardiovascular: regular heart rhythm. no murmurs. no pericardial friction rub. Respiratory: clear to auscultation bilaterally. no crackles, rhonchi or wheezing. no stridor. Gastrointestinal: soft, nontender. normal bowel sounds. no rebound, guarding, masses. Genital: no testicular tenderness/skin changes. testicles in vertical lie. uncircumsized penis. no inguinal hernias palpated. Extremities: peripheral pulses intact. no lower extremity edema. Neurological: CN 2-12 grossly intact. moves all four extremities. Psych: awake, alert, oriented x3. follows commands. answers questions appropriately. Past History - Past Medical History Allergies/Adverse Reactions: Allergies Allergy/AdvReac Type Severity Reaction Status Date / Time blueberry Allergy Verified 05/10/19 21:11 No Known Drug Allergies Allergy Verified 05/10/19 21:11 Home Medications: Ambulatory Orders Amox-Tr/K Cl [Augmentin - 875Mg Tablet] 1 tab PO BID #14 tablet 03/20/19 Diazepam [Valium] 10 mg PO Q8H #2 tablet MDD 2 03/26/19 Naproxen [Naprosyn -] 500 mg PO BID #30 tablet 03/26/19 Amoxicillin/Potassium Clav [Augmentin 875-125 Tablet] 1 each PO BID #14 tablet 05/10/19 - Psycho Social/Smoking Cessation Hx Number of Cigarettes Smoked Daily: 0 If you are a former smoker, when did you quit?: 2014 ED Treatment Course - LABORATORY CBC & Chemistry Diagram: 07/19/19 05:25 07/19/19 05:25 Medical Decision Making - Medical Decision Making 23 year old male with above PMH presented to ED for umbilical pain associated with one episode of diarrhea. Initial Vital Signs Temp Pulse Resp BP Pulse Ox 98.1 F 98 H 18 140/95 100 07/19/19 05:00 07/19/19 05:00 07/19/19 05:00 07/19/19 05:00 07/19/19 05:00 Afebrile. No tachycardia. No tachypnea. Hypertensive. No hypoxia on room air. Labs ordered: CBC, CMP, amylase Imaging ordered: none Medications ordered: tylenol IV, bentyl 07/19/19 06:18 CBC WBC 6.7 K/mm3 (4.0-10.0) 07/19/19 05:25 RBC 5.85 M/mm3 (4.00-5.60) H 07/19/19 05:25 Hgb 16.5 GM/dL (11.7-16.9) 07/19/19 05:25 Hct 48.5 % (35.4-49) 07/19/19 05:25 MCV 82.8 fl (80-96) 07/19/19 05:25 MCH 28.2 pg (25.7-33.7) 07/19/19 05:25 MCHC 34.0 g/dl (32.0-35.9) 07/19/19 05:25 RDW 13.4 % (11.9-15.9) 07/19/19 05:25 Plt Count 161 K/MM3 (134-434) 07/19/19 05:25 MPV 8.9 fl (7.5-11.1) 07/19/19 05:25 Absolute Neuts (auto) 4.4 K/mm3 (1.5-8.0) 07/19/19 05:25 Neutrophils % 65.7 % (42.8-82.8) D 07/19/19 05:25 Lymphocytes % 25.3 % (8-40) D 07/19/19 05:25 Monocytes % 7.8 % (3.8-10.2) 07/19/19 05:25 Eosinophils % 0.8 % (0-4.5) 07/19/19 05:25 Basophils % 0.4 % (0-2.0) 07/19/19 05:25 Nucleated RBC % 0 % (0-0) 07/19/19 05:25 No leukocytosis. No anemia. Urine Test Results Urine Color Yellow 07/19/19 05:45 Urine Appearance Clear 07/19/19 05:45 Urine pH 5.5 (5.0-8.0) 07/19/19 05:45 Ur Specific [place] 1.021 (1.010-1.035) 07/19/19 05:45 Urine Protein Negative (NEGATIVE) 07/19/19 05:45 Urine Glucose (UA) Negative (NEGATIVE) 07/19/19 05:45 Urine Ketones Negative (NEGATIVE) 07/19/19 05:45 Urine Blood Negative (NEGATIVE) 07/19/19 05:45 Urine Nitrite Negative (NEGATIVE) 07/19/19 05:45 Urine Bilirubin Negative (NEGATIVE) 07/19/19 05:45 Ur Leukocyte Esterase Negative (NEGATIVE) 07/19/19 05:45 Negative for UTI. Negative for hematuria. Negative for ketonuria. 07/19/19 06:38 CMP Sodium 141 mmol/L (136-145) 07/19/19 05:25 Potassium 3.6 mmol/L (3.5-5.1) 07/19/19 05:25 Chloride 108 mmol/L (98-107) H 07/19/19 05:25 Carbon Dioxide 26 mmol/L (21-32) 07/19/19 05:25 Anion Gap 8 MMOL/L (8-16) 07/19/19 05:25 BUN 14.8 mg/dL (7-18) 07/19/19 05:25 Creatinine 1.0 mg/dL (0.55-1.3) 07/19/19 05:25 Est GFR (CKD-EPI)AfAm 124.14 07/19/19 05:25 Est GFR (CKD-EPI)NonAf 107.11 07/19/19 05:25 Random Glucose 93 mg/dL (74-106) 07/19/19 05:25 Calcium 9.7 mg/dL (8.5-10.1) 07/19/19 05:25 Total Bilirubin 0.4 mg/dL (0.2-1) 07/19/19 05:25 AST 21 U/L (15-37) 07/19/19 05:25 ALT 78 U/L (13-61) H 07/19/19 05:25 Alkaline Phosphatase 83 U/L (45-117) 07/19/19 05:25 Total Protein 8.2 g/dl (6.4-8.2) 07/19/19 05:25 Albumin 4.6 g/dl (3.4-5.0) 07/19/19 05:25 Total Amylase 45 U/L (25-115) 07/19/19 05:25 No electrolyte abnormalities. No RALPH. No transaminitis. Normal amylase. -Lab unable to run lipase today as machine is broken Pt reported no recurrence of symptoms, feels in his normal state of [place]. Pt tolerated PO challenge. Pt discharged and instructed to F/U with PCP. He agreed with plan for care. Discharge - Discharge Information Problems reviewed: Yes Clinical Impression/Diagnosis: Abdominal pain, Diarrhea Condition: Stable Disposition: HOME - Admission No - Follow up/Referral Referrals: Judson Solorzano MD [Primary Care Provider] - - Patient Discharge Instructions Additional Instructions: Follow up with your primary care doctor within 3 days. Your care is not complete until you follow up. Drink lots of fluids to stay hydrated. Take Tylenol over the counter for pain, take as advised on label. Take ibuprofen over the counter for pain, take as advised on label. Tylenol and ibuprofen are not the same medication and can be safely taken together. Return to the Emergency Department for increasing pain, lightheadedness, chest pain, shortness of breath, vomiting, fever, or any other new, worsening or concerning symptoms. - Post Discharge Activity Work/Back to School Note: Back to Work
[2019-07-19 05:25] VITALS: TEMP 98.1; BMI 25.0
[2019-07-19] MEDS ORDERED: ACETAMINOPHEN 1000 MG/100 ML VIAL (NON FORMULARY) IVPB ONE (05:26)
[2019-07-19] MEDS ORDERED: DICYCLOMINE HCL 10 MG CAPSULE PO ONE (05:26)
--- NOTE | 2019-07-19 05:33 | PDOC ---
Attending Attestation - Resident Resident Name: Aimee Loya - ED Attending Attestation I have performed the following: I have examined & evaluated the patient, The case was reviewed & discussed with the resident, I agree w/resident's findings & plan, Exceptions are as noted - HPI HPI: 07/19/19 05:31 23 M with h/o brugada s/p AICD, presenting to ED with sudden onset abdominal pain. Pt states that he awoke with severe abdominal cramping. This was followed by an episode of watery brown diarrhea, which he states resolved the pain. However, shortly afterwards, the pain returned for about 10 minutes before spontaneously resolving. Pt denies any N/V. Denies any additional episodes of diarrhea. No F/C. Denies any groin or scrotal pain. No dysuria. Pt now reports that he is completely asymptomatic. - Physicial Exam PE: 07/19/19 05:33 "GENERAL: Awake, alert, and fully oriented, in no acute distress. HEAD: No signs of trauma EYES: PERRLA, EOMI, sclera anicteric, conjunctiva clear ENT: Auricles normal inspection, hearing grossly normal, nares patent, oropharynx clear without exudates. Moist mucosa NECK: Nontender, no stepoffs, Normal ROM, supple, no lymphadenopathy, JVD, or masses LUNGS: Breath sounds equal, clear to auscultation bilaterally. No wheezes, and no crackles HEART: Regular rate and rhythm, normal S1 and S2, no murmurs, rubs or gallops ABDOMEN: Soft, nontender, normoactive bowel sounds. No guarding, no rebound. No masses EXTREMITIES: Normal range of motion, no edema. No clubbing or cyanosis. No cords, erythema, or tenderness NEUROLOGICAL: Cranial nerves II through XII intact. 5/5 strength and sensation in all extremities, Normal speech, normal gait, normal cerebellar function SKIN: Warm, Dry, normal turgor, no rashes or lesions noted. - Medical Decision Making 07/19/19 05:33 23 M with colicky abdominal pain with 1 episode of diarrhea, now resolved. Pt with completely benign abdominal exam. - Labs - Reassess 07/19/19 06:38 Labs wnl Pt tolerating PO Repeat abdominal exam continues to be benign, pt continues to feel well without pain Pt is well appearing, with normal vitals. Clinically stable for DC at this time. I discussed the physical exam findings, ancillary test results and final diagnoses with the patient. I answered all of the patient's questions. The patient was satisfied with the care received and felt comfortable with the discharge plan and treatment plan. The patient agrees to follow up with the primary care physician within 24-72 hours.
[2019-07-19] MEDS ORDERED: DICYCLOMINE HCL 10 MG CAPSULE ONE (05:35)
[2019-07-19] MEDS ORDERED: ACETAMINOPHEN INJECTION 100 ML IVPB ONE (05:35)
[2019-07-19 06:09] LABS: PH,URINE 5.5 (5.0-8.0); URINE APPEARANCE CLEAR; URINE BILIRUBIN NEGATIVE (NEGATIVE); URINE COLOR YELLOW; URINE GLUCOSE (UA) NEGATIVE (NEGATIVE); URINE KETONE NEGATIVE (NEGATIVE); URINE LEUK ESTERASE NEGATIVE (NEGATIVE); URINE NITRITE NEGATIVE (NEGATIVE); URINE PROTEIN NEGATIVE (NEGATIVE)
[2019-07-19 06:09] LABS: BASO % 0.4 % (0-2.0); EOS % 0.8 % (0-4.5); HEMATOCRIT 48.5 % (35.4-49); HEMOGLOBIN 16.5 GM/dL (11.7-16.9); LYMPH % 25.3 % (8-40); MCH 28.2 pg (25.7-33.7); MEAN CELL VOLUME 82.8 fl (80-96); MEAN PLT VOLUME 8.9 fl (7.5-11.1); MONO % 7.8 % (3.8-10.2); NEUT % 65.7 % (42.8-82.8); PLATELET COUNT 161 K/MM3 (134-434); RBC 5.85 M/mm3 (4.00-5.60); RDW 13.4 % (11.9-15.9); WHITE BLOOD COUNT 6.7 K/mm3 (4.0-10.0)
[2019-07-19 06:37] LABS: ALBUMIN 4.6 g/dl (3.4-5.0); BILIRUBIN,TOTAL 0.4 mg/dL (0.2-1); BLOOD UREA NITROGEN 14.8 mg/dL (7-18); CALCIUM 9.7 mg/dL (8.5-10.1); POTASSIUM 3.6 mmol/L (3.5-5.1); TOT PROT 8.2 g/dl (6.4-8.2)
[2019-07-19 07:03] VITALS: BP 134/90; PULSE 86
== END 2019-07-19 07:00 | disposition home or self-care (01) ==
LOC: JER 04:49
PROC: 3E033NZ Introduction of Analgesics, Hypnotics, Sedatives into Peripheral Vein, Percutaneous Approach (ICD-10-PCS; principal; 2019-07-19)
DX: R10.9 Unspecified abdominal pain (principal); R19.7 Diarrhea, unspecified; Z91.018 Allergy to other foods; I49.8 Other specified cardiac arrhythmias; Z95.810 Presence of automatic (implantable) cardiac defibrillator
CPT/HCPCS: 36415; 80053; 81003; 82150; 85025; 87086; 96374; 99283-25; J0131

== ENCOUNTER 2019-10-05 18:10 | Emergency (ER) | payer OTHER ==
[2019-10-05 18:39] VITALS: BP 126/79; PULSE 78; TEMP 98.3; BMI 25.9
--- NOTE | 2019-10-05 18:41 | PDOC ---
Rapid Medical Evaluation Chief Complaint: Toothache Time Seen by Provider: 10/05/19 18:39 Medical Evaluation: Allergies Allergy/AdvReac Type Severity Reaction Status Date / Time blueberry Allergy Verified 10/05/19 18:35 No Known Drug Allergies Allergy Verified 10/05/19 18:35 Vital Signs Temp Pulse Resp BP Pulse Ox 98.3 F 78 18 126/79 97 10/05/19 18:36 10/05/19 18:36 10/05/19 18:36 10/05/19 18:36 10/05/19 18:36 10/05/19 18:39 I performed a brief in-person evaluation of this patient. 24-year-old male with history of Brugada Syndrome/ICD, root canal x 2 years ago , now with 2 days of dental pain and swelling sensation. Pertinent physical exam findings: No appreciable abscess/collection. No trismus. I have ordered the following: None Patient to proceed to [facility] for further evaluation. Discharge Disposition - Diagnosis Pain, dental - Referrals - Patient Instructions - Post Discharge Activity
[2019-10-05] MEDS ORDERED: KETOROLAC TROMETHAMINE 60 MG/2 ML VIAL IM ONE (19:04)
--- NOTE | 2019-10-05 19:07 | PDOC ---
History of Present Illness - General Chief Complaint: Toothache Stated Complaint: TOOTHACHE Time Seen by Provider: 10/05/19 18:39 - History of Present Illness Initial Comments: 10/05/19 19:05 24-year-old male with past medical history of cardiac arrhythmias Brugada syndrome with a defibrillator presents for evaluation of a toothache. Minimally relieved with Tylenol at home and 200 mg of ibuprofen this morning to take for the last 2 days without systemic symptoms Past History - Past Medical History Allergies/Adverse Reactions: Allergies Allergy/AdvReac Type Severity Reaction Status Date / Time blueberry Allergy Verified 10/05/19 18:35 No Known Drug Allergies Allergy Verified 10/05/19 18:35 Home Medications: Ambulatory Orders Amox-Tr/K Cl [Augmentin - 875Mg Tablet] 1 tab PO BID #14 tablet 03/20/19 Diazepam [Valium] 10 mg PO Q8H #2 tablet MDD 2 03/26/19 Naproxen [Naprosyn -] 500 mg PO BID #30 tablet 03/26/19 Amoxicillin/Potassium Clav [Augmentin 875-125 Tablet] 1 each PO BID #14 tablet 05/10/19 Cardiac Disorders: Yes (brugadas syndrome) COPD: No - Surgical History Cardiac Surgery: Yes (ACID) - Immunization History Immunization Up to Date: Yes - Psycho Social/Smoking Cessation Hx Smoking History: Never smoked Have you smoked in the past 12 months: No Number of Cigarettes Smoked Daily: 0 If you are a former smoker, when did you quit?: 2014 Hx Alcohol Use: No Drug/Substance Use Hx: No Substance Use Type: Alcohol, Marijuana Review of Systems - Review of Systems Constitutional: No: Fever *Physical Exam - Vital Signs Last Vital Signs Temp Pulse Resp BP Pulse Ox 98.3 F 78 18 126/79 97 10/05/19 18:36 10/05/19 18:36 10/05/19 18:36 10/05/19 18:36 10/05/19 18:36 - Physical Exam 10/05/19 19:05 GENERAL: The patient is awake, alert, and fully oriented, in no acute distress. HEAD: Normal with no signs of trauma. EYES: sclera anicteric, conjunctiva clear. ENT: oropharynx clear uvula midline NECK: Normal range of motion EXTREMITIES: Normal range of motion, no edema. No clubbing or cyanosis. No cords, erythema, or tenderness. NEUROLOGICAL: Cranial nerves II through XII grossly intact. PSYCH: Normal mood, normal affect. SKIN: Warm, Dry, normal turgor, no rashes or lesions noted. Medical Decision Making - Medical Decision Making 10/05/19 19:06 No appreciable dental abscess noted. Pain is subjective will treat with Toradol and follow-up with urgent care dental tooth in question is the right rear molar on the bottom with prior root canal Discharge - Discharge Information Problems reviewed: Yes Clinical Impression/Diagnosis: Pain, dental Condition: Stable Disposition: HOME - Admission No - Follow up/Referral Referrals: Judson Solorzano MD [Primary Care Provider] - [facility] [Outside] - Patient Discharge Instructions Additional Instructions: Please continue with Tylenol and Motrin as directed. Restart the Motrin tomorrow as we discussed. Follow-up with urgent care dental you do not need an appointment. Please follow-up within the next 1 to 2 days for further evaluation and treatment options. - Post Discharge Activity
[2019-10-05] MEDS ORDERED: KETOROLAC TROMETHAMINE 60 MG/2 ML VIAL ONE (19:18)
== END 2019-10-05 19:45 | disposition home or self-care (01) ==
LOC: JERFT 18:10
PROC: 3E0233Z Introduction of Anti-inflammatory into Muscle, Percutaneous Approach (ICD-10-PCS; principal; 2019-10-05)
DX: K08.89 Other specified disorders of teeth and supporting structures (principal); I49.8 Other specified cardiac arrhythmias; Z95.810 Presence of automatic (implantable) cardiac defibrillator; Z91.018 Allergy to other foods
CPT/HCPCS: 96372; 99284-25

== ENCOUNTER 2020-08-15 20:32 | Emergency (ER) | payer OTHER ==
[2020-08-15 21:48] VITALS: BMI 26.6
[2020-08-15] MEDS ORDERED: ACETAMINOPHEN 500 MG TABLET (FP) PO ONE (22:24)
[2020-08-15] MEDS ORDERED: METOCLOPRAMIDE HCL INJECTION 10 MG/2 ML VIAL IVPB ONE (23:07)
[2020-08-15] MEDS ORDERED: SODIUM CHLORIDE 1,000 ML IV STA (23:11)
[2020-08-15] MEDS ORDERED: ACETAMINOPHEN 325 MG TABLET (FP) ONE (23:14)
[2020-08-15] MEDS ORDERED: METOCLOPRAMIDE HCL INJECTION 10 MG/2 ML VIAL ONE (23:14)
[2020-08-15] MEDS ORDERED: ACETAMINOPHEN 325 MG TABLET (FP) PO ONE (23:17)
[2020-08-15 23:26] LABS: BASO % 0.3 % (0-2.0); EOS % 0.2 % (0-4.5); HEMATOCRIT 47.2 % (35.4-49); HEMOGLOBIN 15.9 GM/dL (11.7-16.9); LYMPH % 12.8 % (8-40); MCH 28.1 pg (25.7-33.7); MCHC 33.7 g/dl (32.0-35.9); MEAN CELL VOLUME 83.5 fl (80-96); MEAN PLT VOLUME 9.1 fl (7.5-11.1); MONO % 17.3 % (3.8-10.2); NEUT % 69.4 % (42.8-82.8); PLATELET COUNT 140 K/MM3 (134-434); RBC 5.65 M/mm3 (4.00-5.60); RDW 13.4 % (11.9-15.9); WHITE BLOOD COUNT 7.1 K/mm3 (4.0-10.0)
[2020-08-15 23:53] LABS: CHLORIDE 109 mmol/L (98-107); POTASSIUM 3.7 mmol/L (3.5-5.1); SODIUM 141 mmol/L (136-145)
[2020-08-15 23:55] LABS: ALBUMIN 4.4 g/dl (3.4-5.0); ANION GAP 6 MMOL/L (8-16); BLOOD UREA NITROGEN 15.4 mg/dL (7-18); CO2 26 mmol/L (21-32)
[2020-08-15 23:56] LABS: GLUCOSE,RANDOM 85 mg/dL (74-106)
[2020-08-15 23:58] LABS: SGPT/ALT 96 U/L (13-61)
[2020-08-15 23:59] LABS: CREATININE 1.1 mg/dL (0.55-1.3); SGOT/AST 28 U/L (15-37)
[2020-08-16] LABS: BILIRUBIN,TOTAL 0.4 mg/dL (0.2-1); TOT PROT 8.1 g/dl (6.4-8.2)
[2020-08-16 00:01] LABS: ALK PHOS 77 U/L (45-117)
[2020-08-16 00:53] VITALS: BP 106/58; PULSE 79; TEMP 98.8
== END 2020-08-16 01:40 | disposition home or self-care (01) ==
LOC: JER 20:32
PROC: 3E033GC Introduction of Other Therapeutic Substance into Peripheral Vein, Percutaneous Approach (ICD-10-PCS; principal; 2020-08-15)
PROC: 3E0337Z Introduction of Electrolytic and Water Balance Substance into Peripheral Vein, Percutaneous Approach (ICD-10-PCS; 2020-08-15)
DX: U07.1 COVID-19 (principal)
CPT/HCPCS: 36415; 71046-TC-FY; 80053; 82550; 84484; 85025; 85379; 87804; 93005; 93010; 99285-25; C9803; U0003

== ENCOUNTER 2020-10-23 03:21 | Emergency (ER) | payer OTHER ==
[2020-10-23] MEDS ORDERED: KETOROLAC TROMETHAMINE 60 MG/2 ML VIAL IM ONE (03:45)
[2020-10-23] MEDS ORDERED: KETOROLAC TROMETHAMINE 30 MG/1 ML VIAL IVPUSH ONE ×2 (03:57→04:33)
[2020-10-23 04:00] VITALS: TEMP 99.1; BMI 26.6
[2020-10-23 04:10] LABS: BASO % 0.6 % (0-2.0); HEMATOCRIT 48.4 % (35.4-49); HEMOGLOBIN 16.5 GM/dL (11.7-16.9); LYMPH % 35.7 % (8-40); MCH 28.6 pg (25.7-33.7); MCHC 34.1 g/dl (32.0-35.9); MEAN CELL VOLUME 83.8 fl (80-96); MONO % 10.9 % (3.8-10.2); NEUT % 51.8 % (42.8-82.8); PLATELET COUNT 185 K/MM3 (134-434); RBC 5.78 M/mm3 (4.00-5.60); RDW 13.9 % (11.9-15.9); WHITE BLOOD COUNT 8.1 K/mm3 (4.0-10.0)
[2020-10-23] MEDS ORDERED: LIDOCAINE 5% TOPICAL PATCH TP ONE (04:14)
[2020-10-23 04:31] LABS: POTASSIUM 3.8 mmol/L (3.5-5.1)
[2020-10-23 04:32] LABS: CALCIUM 9.2 mg/dL (8.5-10.1)
[2020-10-23 04:33] LABS: ALBUMIN 4.6 g/dl (3.4-5.0); BLOOD UREA NITROGEN 21.8 mg/dL (7-18)
[2020-10-23] MEDS ORDERED: diazePAM 5 MG TABLET PO ONE (04:33)
[2020-10-23 04:36] LABS: CREATININE 1.1 mg/dL (0.55-1.3)
[2020-10-23 04:38] LABS: BILIRUBIN,TOTAL 0.4 mg/dL (0.2-1); TOT PROT 8.3 g/dl (6.4-8.2)
[2020-10-23 05:15] VITALS: BP 120/82; PULSE 88
[2020-10-23] MEDS ORDERED: LIDOCAINE PATCH REMOVAL MC SCH (22:00)
== END 2020-10-23 05:14 | disposition home or self-care (01) ==
LOC: JER 03:21
PROC: 3E0233Z Introduction of Anti-inflammatory into Muscle, Percutaneous Approach (ICD-10-PCS; principal; 2020-10-23)
PROC: 3E0333Z Introduction of Anti-inflammatory into Peripheral Vein, Percutaneous Approach (ICD-10-PCS; 2020-10-23)
DX: M54.2 Cervicalgia (principal)
CPT/HCPCS: 36415; 71046-TC-FY; 80053; 82550; 84484; 85025; 93005; 93010; 99284-25

== ENCOUNTER 2021-05-20 11:58 | Emergency (ER) | payer OTHER ==
[2021-05-20 12:37] VITALS: BMI 26.6
[2021-05-20 13:45] LABS: BASO % 0.9 % (0-2.0); EOS % 0.8 % (0-4.5); HEMATOCRIT 45.7 % (35.4-49); HEMOGLOBIN 15.7 GM/dL (11.7-16.9); MCHC 34.3 g/dl (32.0-35.9); MEAN CELL VOLUME 81.7 fl (80-96); MEAN PLT VOLUME 7.7 fl (7.5-11.1); MONO % 11.2 % (3.8-10.2); NEUT % 66.1 % (42.8-82.8); PLATELET COUNT 156 10^3/uL (134-434); RBC 5.59 M/mm3 (4.00-5.60); RDW 13.5 % (11.9-15.9)
[2021-05-20 14:51] LABS: BLOOD UREA NITROGEN 17.5 mg/dL (7-18); CREATININE 0.8 mg/dL (0.55-1.3); GLUCOSE,RANDOM 90 mg/dL (74-106); SODIUM 140 mmol/L (136-145)
[2021-05-20 14:52] LABS: ALBUMIN 3.9 g/dl (3.4-5.0); ALK PHOS 75 U/L (45-117); BILIRUBIN,TOTAL 0.6 mg/dL (0.2-1); CALCIUM 8.8 mg/dL (8.5-10.1); CHLORIDE 108 mmol/L (98-107); CO2 26 mmol/L (21-32); SGOT/AST 28 U/L (15-37); SGPT/ALT 70 U/L (13-61)
[2021-05-20 15:12] VITALS: BP 118/72; PULSE 82; TEMP 98
== END 2021-05-20 15:14 | disposition home or self-care (01) ==
LOC: JER 11:58
DX: R00.2 Palpitations (principal); R07.9 Chest pain, unspecified
CPT/HCPCS: 36415; 71045-TC-FY; 80053; 82550; 84484; 85025; 93005; 93010; 99285-25

== ENCOUNTER 2021-06-20 23:15 | Emergency (ER) | payer OTHER ==
[2021-06-20 23:23] VITALS: BP 138/80; PULSE 96; TEMP 97.9; BMI 26.6
[2021-06-20] MEDS ORDERED: IBUPROFEN 400 MG TABLET (FP) PO PRN (23:45)
[2021-06-20] MEDS ORDERED: PENICILLIN G BENZATHINE 1,200,000 UNIT/2 ML PFS IM ONE ×2 (23:47→23:48)
[2021-06-20] MEDS ORDERED: IBUPROFEN 400 MG TABLET (FP) PO ONE (23:48)
[2021-06-21 02:16] LABS: HIV INTERPRETATION NEGATIVE (NEGATIVE)
== END 2021-06-21 00:14 | disposition home or self-care (01) ==
LOC: JER 23:15
DX: J02.9 Acute pharyngitis, unspecified (principal); Z11.52 Encounter for screening for COVID-19
CPT/HCPCS: 36415; 87389; 87880; 99284-25; C9803; U0003; U0005

== ENCOUNTER 2021-08-24 14:07 | Emergency (ER) | payer OTHER ==
[2021-08-24 14:24] VITALS: BP 125/75; PULSE 80; TEMP 98.1; BMI 27.1
== END 2021-08-24 14:38 | disposition home or self-care (01) ==
LOC: JER 14:07 → JERFT 14:07
DX: L30.9 Dermatitis, unspecified (principal)
CPT/HCPCS: 99283-25

== ENCOUNTER 2023-01-19 03:03 | Emergency (ER) | payer OTHER ==
[2023-01-19 03:14] VITALS: BP 119/87; PULSE 71; RESP 16; TEMP 98.3; BMI 27.1
[2023-01-19] MEDS ORDERED: PENICILLIN G BENZATHINE 2,400,000 UNIT/4 ML PFS IM ONE (03:22)
[2023-01-19] MEDS ORDERED: PENICILLIN G BENZATHINE 1,200,000 UNIT/2 ML PFS IM ONE (03:24)
== END 2023-01-19 03:32 | disposition home or self-care (01) ==
LOC: FER 03:03 → SUPCPDRO 03:03 → FER 03:32
DX: Z23 Encounter for immunization (principal)
CPT/HCPCS: 99284-25

== ENCOUNTER 2023-10-24 12:35 | Emergency (ER) | payer OTHER ==
[2023-10-24 12:53] VITALS: BP 132/88; PULSE 91; RESP 18; TEMP 97.9; BMI 27.8
[2023-10-24] MEDS ORDERED: KETOROLAC TROMETHAMINE 30 MG/1 ML VIAL ONE (13:14)
[2023-10-24] MEDS: KETOROLAC TROMETHAMINE 30 MG/1 ML VIAL IVPUSH ONE (13:25)
[2023-10-24] MEDS: SODIUM CHLORIDE 0.9% 1000 ML INFUS.BAG IV ONE (13:25)
[2023-10-24 13:28] LABS: HEMOGLOBIN 16.2 G/dL (11.7-16.9); MCH 29.5 pg (25.7-33.7); MCHC 35.3 g/dl (32.0-35.9); MEAN CELL VOLUME 83.6 fl (80-96); MEAN PLT VOLUME 9.1 fl (7.5-11.1); PLATELET COUNT 156.1 10^3/uL (134-434)
[2023-10-24 13:40] LABS: ALBUMIN 4.5 g/dl (3.4-5.0); BILIRUBIN,TOTAL 0.6 mg/dl (0.2-1); CALCIUM 9.5 mg/dl (8.5-10.1); CREATININE 0.9 mg/dl (0.6-1.3); TOT PROT 7.1 g/dl (6.4-8.2)
== END 2023-10-24 15:10 | disposition home or self-care (01) ==
LOC: FER 12:35
PROC: 3E0333Z Introduction of Anti-inflammatory into Peripheral Vein, Percutaneous Approach (ICD-10-PCS; principal; 2023-10-24)
DX: M54.50 Low back pain, unspecified (principal); K59.00 Constipation, unspecified; R10.9 Unspecified abdominal pain; R11.0 Nausea
CPT/HCPCS: 36415; 74176-TC; 80053; 81003; 81015; 85027; 87086; 99284-25

== ENCOUNTER 2023-10-31 14:46 | Emergency (ER) | payer OTHER ==
[2023-10-31] MEDS: SODIUM CHLORIDE 0.9% 500 ML INFUS.BAG IV ONE ×2 (15:11→15:45)
[2023-10-31] MEDS: ONDANSETRON 4 MG/2 ML VIAL IVPUSH ONE (15:12)
[2023-10-31] MEDS ORDERED: ONDANSETRON HCL 4 MG/5 ML UD CUPS ONE (15:16)
[2023-10-31] MEDS ORDERED: ACETAMINOPHEN INJECTION 100 ML IVPB ONE (15:16)
[2023-10-31] MEDS: ACETAMINOPHEN 1000 MG/100 ML BAG IVPB ONE (15:17)
[2023-10-31 16:38] VITALS: RESP 18; TEMP 102.8; BMI 25.3
[2023-10-31 16:43] VITALS: BP 117/78; PULSE 100
== END 2023-10-31 17:11 | disposition home or self-care (01) ==
LOC: FER 14:46
PROC: 3E033NZ Introduction of Analgesics, Hypnotics, Sedatives into Peripheral Vein, Percutaneous Approach (ICD-10-PCS; principal; 2023-10-31)
PROC: 3E033GC Introduction of Other Therapeutic Substance into Peripheral Vein, Percutaneous Approach (ICD-10-PCS; 2023-10-31)
DX: R50.9 Fever, unspecified (principal); M79.10 Myalgia, unspecified site; R53.83 Other fatigue; J06.9 Acute upper respiratory infection, unspecified; Z20.822 Contact with and (suspected) exposure to COVID-19
CPT/HCPCS: 0241U-QW; 99284-25; J0131

== ENCOUNTER 2024-04-12 12:24 | Emergency (ER) | payer OTHER ==
[2024-04-12 12:48] VITALS: BP 121/76; PULSE 107; RESP 18; TEMP 99.8; BMI 28.1
== END 2024-04-12 13:40 | disposition left against medical advice (07) ==
LOC: JER 12:24
DX: R05.9 Cough, unspecified (principal); R09.81 Nasal congestion; R07.9 Chest pain, unspecified
CPT/HCPCS: 93005; 93010; 99281-25